=== PATIENT | male | born 1950 | race Caucasian/White ===

== ENCOUNTER → 2020-09-19 | Outpatient (CLI) | payer MEDICARE ==
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
== END ==
LOC: RAD 10:08
PROVIDERS: ATTEND Podiatrist Foot & Ankle Surgery
DX: T25.332A Burn of third degree of left toe(s) (nail), initial encounter (principal); M77.32 Calcaneal spur, left foot; X58.XXXA Exposure to other specified factors, initial encounter; Y93.89 Activity, other specified; Y92.89 Other specified places as the place of occurrence of the external cause; Y99.8 Other external cause status
CPT/HCPCS: 73630